=== PATIENT | male | born 1965 | race African-American/Black ===

== ENCOUNTER 2017-09-29 12:51 | Emergency (ER) | payer MEDICAID ==
[~2017-09-29] VITALS: Ht 182.9 cm; Wt 156.5 kg
[2017-09-29 12:53] VITALS: BP 157/90
--- NOTE | 2017-09-29 13:00 | NUR ---
51Y/M BIB SELF C/O BOTH FOOT PAIN WITH TOES NAIL DISCOLORATION, TINGLING FOR 2-3 WEEKS, NO TRAUMA NOR INJURY. PATIENT POSITIONED FOR COMFORT;ER MD MADE AWARE OF PT STATUS.
[2017-09-29 13:55] LABS: BASOPHILS % (AUTO) 0.3 % (0.0-2.0); EOSINOPHILS # (AUTO) 0.3 K/uL (0-0.4); HEMATOCRIT 41.5 % (36-52); HEMOGLOBIN 13.3 g/dL (12.0-18.0); LYMPHOCYTES # (AUTO) 2.9 K/uL (2.0-11.5); LYMPHOCYTES % (AUTO) 44.3 % (20.5-51.1); MEAN CORPUSCULAR HEMOGLOBIN 27 pg (27-31); MEAN CORPUSCULAR HGB CONC 32 g/dL (33-37); MEAN CORPUSCULAR VOLUME 84.7 fL (80-94); MONOCYTES # (AUTO) 0.5 K/uL (0.8-1.0); MONOCYTES % (AUTO) 7.9 % (1.7-9.3); NEUTROPHILS # (AUTO) 2.9 K/uL (1.8-7.7); NEUTROPHILS % (AUTO) 43.5 % (42.2-75.2); PLATELET COUNT (AUTO) 192 K/uL (140-450); RED BLOOD CELL COUNT(AUTO) 4.91 MIL/uL (4.20-6.10); RED CELL DISTRIBUTION WIDTH 14.4 % (11.6-13.7); WHITE BLOOD COUNT (AUTO) 6.6 K/uL (4.8-10.8)
[2017-09-29 14:15] LABS: PROTHROMBIN TIME 9.9 secs (10.8-13.4)
[2017-09-29 14:24] LABS: ALBUMIN 3.5 g/dL (3.4-5.0); ANION GAP 9.2 (8-16); CREATININE 1.2 mg/dL (0.7-1.3); POTASSIUM 4.2 mmol/L (3.5-5.1); TOTAL BILIRUBIN 0.3 mg/dL (0.0-1.0)
--- NOTE | 2017-09-29 15:12 | NUR ---
Dr. Root re-evaluating patient.
[2017-09-29 15:15] VITALS: BP 158/92
--- NOTE | 2017-09-29 15:15 | NUR ---
Patient discharged with v/s stable. Written and verbal after care instructions given and explained. Patient alert, oriented and verbalized understanding of instructions. Ambulatory with steady gait. All questions addressed prior to discharge. ID band removed. Patient advised to follow up with PMD. Rx of ASPIRIN AND MOTRIN given. Patient educated on indication of medication including possible reaction and side effects. Opportunity to ask questions provided and answered.
== END 2017-09-29 15:15 | disposition home or self-care (01) ==
LOC: MED 12:51
DX: S93.602A Unspecified sprain of left foot, initial encounter (principal); X58.XXXA Exposure to other specified factors, initial encounter; Y93.89 Activity, other specified; Y99.8 Other external cause status; Y92.89 Other specified places as the place of occurrence of the external cause; I10 Essential (primary) hypertension
CPT/HCPCS: 36415; 80053; 85025; 85610; 85730; 93005; 93925; 99285; Q0092